=== PATIENT | female | born 1955 | race Caucasian/White ===

== ENCOUNTER 2023-08-05 10:59 | Outpatient (CLI) | payer MEDICARE, BC, SELFPAY | END 2023-08-05 11:00 | disposition home or self-care (01) | LOC: LKVREF 11:06 | PROVIDERS: PCP Family Medicine; Visit Provider Nurse Practitioner Family | DX: Z00.00 Encounter for general adult medical examination without abnormal findings (principal); E78.5 Hyperlipidemia, unspecified | CPT/HCPCS: 80061 ==

== ENCOUNTER 2023-12-08 13:27 | Outpatient (CLI) | payer MEDICARE, BC, SELFPAY ==
--- NOTE | 2023-12-08 13:30 | XR_ITS ---
Patient: KIMBERLY CLEMENTE Facility:?[facility] Patient ID:?[id number] Site Patient ID:?[id number]. Site :?[id number] Study:?DEXA-Bone Density -12/08/2023 3:46:21 PM Ordering Physician:BELKIS Final Report: DXA BONE MINERAL DENSITY STUDY Reason for exam: Asymptomatic menopausal state. Current height (in): 64. Weight (lb): 112. Menopause age: 52. Ethnicity: White. 1. Have you had a previous hip or vertebral fracture? No. 2. Have you had any fractures during your adult life which did not result from significant trauma (e.g., auto accident)? No. 3. Did either of your parents have a hip fracture? Yes. 4. Do you smoke? No. 5. Have you ever taken Glucocorticoids? No. 6. Do you have rheumatoid arthritis? No. 7. Do you have secondary osteoporosis? No. 8. Do you drink 3 or more alcoholic drinks per day? No. 9. Are you being treated for osteoporosis? No. 10. Have you ever taken any of the following medications: Actonel, Evista, Fosamax, Miacalcin, Reclast, Boniva, Forteo, HRT (i.e., estrogen/hormone therapy), Protelos, Prolia, Vitamin D, Calcium, other ? please specify. ANSWER: Yes, vitamin D, HRT (i.e. estrogen/hormone therapy), and calcium. 11. Do you have any of the following medical conditions: Anorexia or bulimia, asthma or emphysema, end stage renal disease, hyperparathyroidism, any seizure disorders, cancer, inflammatory bowel diseases, hysterectomy, other ? please specify. ANSWER: No. 12. What was your maximum height (inches)? 64.4. 13. Do you perform weight bearing exercise regularly? No. 14. Do you regularly consume dairy products? Yes. 15. Do you drink caffeinated beverages? No. 16. At what age did your period start? 16. 17. Are you premenopausal? No. 18. How many full-term pregnancies have you had? 2. 19. Have you ever missed your period for more than 6 months in a row (not including or menopause)? No. TECHNIQUE: Bone mineral density study was performed using the [employer]. FINDINGS: The results of the study expressed as bone mineral density (BMD) are as follows: Lumbar spine L1 to L3: BMD: 0.896 g/cm2. T-score: -1.1. Z-score: 0.7 Neck Left: BMD: 0.599 g/cm2. T-score: -2.3. Z-score: -0.7 Right: BMD: 0.613 g/cm2. T-score: -2.1. Z-score: -0.5 Total Left: BMD: 0.753 g/cm2. T-score: -1.5. Z-score: -0.2 Right: BMD: 0.716 g/cm2. T-score: -1.9. Z-score: -0.5 IMPRESSION: Osteopenia. FRAX 10-year Fracture Risk Major Osteoporotic Fracture: <0.1% Hip Fracture: <0.1% Reported Risk Factors: [place] () Neck BMD=0.599, BMI=19.2, parental yqbilacm04.2, parental fracture YEN COKER M.D. HAILEY:chava D& Transcribed: 4:24 p.m. [email or web address] chava/Dictated by: Yen Coker MD @ 12/09/2023 8:41:00 AM Signed by:Cristi Coker MD @12/10/2023 7:11:33 AM (Electronic Signature)
--- NOTE | 2023-12-08 14:00 | MM_ITS ---
Patient: KIMBERLY CLEMENTE Facility:?[facility] Patient ID:?[id number] Site Patient ID:?[id number]. Site :?[id number] Study:?XRay-Breast Bilateral 3D W/CAD-12/08/2023 2:21:38 PM Ordering Physician:Beatriz Houston Final Report: BILATERAL SCREENING MAMMOGRAM WITH COMPUTER-AIDED DETECTION AND TOMOSYNTHESIS TECHNIQUE: CC and MLO views were obtained. These mammographic images have been obtained using full-field digital technique. These mammographic images were interpreted with the benefit of computer-aided detection. Breast Tomosynthesis was used in this interpretation. COMPARISON FILM: 03/03/16, 06/26/19, 04/10/21. FINDINGS: The breasts are heterogeneously dense, which may obscure small masses IMPRESSION: There is no radiographic evidence for malignancy. ASSESSMENT: BI-RADS Category 1: Negative RECOMMENDATION: Routine screening mammogram in 1 year. A lay language report of this examination will be provided to the patient. Neo Stern M.D. Diagnostic Radiologist [email or web address]/[email or web address] Transcribed: 1:36 p.mCarolyn larsen/Dictated by: Neo Stern MD @ 12/09/2023 1:00:00 PM Signed by:?Neo Stern MD @12/09/2023 1:50:08 PM (Electronic Signature)
== END 2023-12-08 13:28 | disposition home or self-care (01) ==
LOC: RAD 13:31
PROVIDERS: PCP Nurse Practitioner Family; Visit Provider Nurse Practitioner Family
DX: Z12.31 Encounter for screening mammogram for malignant neoplasm of breast (principal); R92.2 Inconclusive mammogram; Z13.820 Encounter for screening for osteoporosis; M85.88 Other specified disorders of bone density and structure, other site; Z78.0 Asymptomatic menopausal state
CPT/HCPCS: 77063; 77067; 77080